=== PATIENT | male | born 1995 | race Caucasian/White ===

== ENCOUNTER 2021-04-29 11:37 | Emergency (ER) | payer OTHER ==
[~2021-04-29] VITALS: Ht 167.6 cm; Wt 65.8 kg
[~2021-04-29 11:37] MED LIST: BACTRIM DS TAB1 EACH PO; IBUPROFEN200 M1 PO; METHYLPHENIDATE20 M4 PO; NORCO 5-325 TA1 EACH PO
== END 2021-04-29 15:00 | disposition home or self-care (01) ==
LOC: ED 11:37
DX: S92.521A Displaced fracture of middle phalanx of right lesser toe(s), initial encounter for closed fracture (principal); Z91.030 Bee allergy status; Z91.09 Other allergy status, other than to drugs and biological substances; W23.0XXA Caught, crushed, jammed, or pinched between moving objects, initial encounter
CPT/HCPCS: 28515; 73660; 99283-25

== ENCOUNTER 2021-07-03 05:48 | Day surgery (SDC) | payer OTHER ==
[~2021-07-03] VITALS: Ht 167.6 cm; Wt 65.9 kg
--- NOTE | ~2021-07-03 | OR ---
[facility] [address] [place], [place] [address] Draft DATE OF OPERATION: 07/03/2021 SURGEON: Valarie Dougherty DPM PREOPERATIVE DIAGNOSIS: Inflammation and irritation of deep orthopedic device/screw x2, right calcaneal. POSTOPERATIVE DIAGNOSIS: Inflammation and irritation of deep orthopedic device/screw x2, right calcaneal. PROCEDURE: Removal of deep hardware x2. [employer] SUPERVISOR: Clifton Mack DPM NURSE BUSHLER: Clifton Yuan. ANESTHESIA: Local with MAC consisting of local of 6 mL of 1:1 mix of 2% lidocaine plain and 0.5% ropivacaine plain. HEMOSTASIS: Ankle tourniquet. ESTIMATED BLOOD LOSS: Less than 5 mL or minimal. MATERIALS UTILIZED: 4-0 nylon. PROCEDURE IN DETAIL: The patient was brought into the operating room and placed upon the operating room table in the prone position. Following IV sedation, the above local anesthesia was administered around the patient's posterior right calcaneal and ankle region. The foot was then scrubbed, prepped, and draped in the usual sterile technique. Esmarch was utilized to exsanguinate the patient's right foot and then left wrapped around the ankle to act as tourniquet. Attention was then directed to the posterior plantar aspect of the patient's right calcaneal area. It should be noted that there was a scar formation PATIENT NAME: LORNE AYALA OPERATIVE REPORT DATE OF : [birth year] REPORT #: [id number] PHYSICIAN: VALARIE DOUGHERTY DPM PCP: JOSI SANCHEZ MD REPORT IS CONFIDENTIAL AND NOT TO BE RELEASED WITHOUT AUTHORIZATION [facility] [address] [place], [place] [address] Draft present from previous surgery. Utilizing a 27-guage needle and a K-wire, the edge of screws were found through the integument. The cannula part of one on the screws was opened and the K-wire was allowed to usually pass into the cannula of the screw. Approximately, 12-mm incision was performed via the original skin incision through the scar tissue, incision was performed through the integument down into the subcutaneous tissue layer. It was then deepened through the fat layer down to bone. A Brainard elevator was utilized to lightly reflect the soft tissue from the edge of the screw head. The screw head was not visualized through the skin incision because the fat adipose layer however verification of the placement of the K-wire pin down the shaft of the screw was verified utilizing intraoperative fluoroscopy. A cannulated screw yard driver was then utilized to remove the screw, good bite occurred with engagement of the screw yard driver and the screw head. It should be noted that a lot of torque was needed in order to move the screw within the calcaneal and talar bony regions. Good bone density was observed as well as good bite of that screw. One screw was then removed. The 2nd screw was identified and probed for utilizing a K-wire. The cannula of the screw was identified, however, it was difficult for the K-wire to be inserted down through the shaft of the screw until a drill was inserted over the K-wire and used to free the bony calcification build up from over the end of the screw head. Once this was performed by hand, the screw yard driver was able to pass over the cannula into the 2nd screw, had engaged the head and again be removed. Upon removal of the 2nd screw, the area was flushed with copious amounts of sterile normal saline. Integument was then closed utilizing 4-0 nylon in the interrupted suture technique. Postoperative dressing was then applied consisting of silver gauze, fluff gauze, Kerlix, and Coban. The ankle tourniquet was removed and prompt hyperemic response was noted to all digits of the patient's right foot. The patient was then escorted to the recovery area with vital signs stable and again cap refill time less than 3 seconds to all digits. Following the period of postoperative monitoring, the patient was discharged to home with both written and oral instructions. KATE Alvarez/TONG /[id number] Copies: PATIENT NAME: LORNE AYALA OPERATIVE REPORT DATE OF : [birth year] REPORT #: [id number] PHYSICIAN: VALARIE DOUGHERTY DPM PCP: JOSI SANCHEZ MD REPORT IS CONFIDENTIAL AND NOT TO BE RELEASED WITHOUT AUTHORIZATION [facility] [address] [place] [address] [place] [address] Draft ~ PATIENT NAME: LORNE AYALA OPERATIVE REPORT DATE OF : [birth year] REPORT #: [id number] PHYSICIAN: VALARIE DOUGHERTY DPM PCP: JOSI SANCHEZ MD REPORT IS CONFIDENTIAL AND NOT TO BE RELEASED WITHOUT AUTHORIZATION
[~2021-07-03 05:48] MED LIST changes: +DOXYCYCLINE HY100 MG PO; +[UNRECOGNIZED DRUG - OTHER] PO
--- NOTE | 2021-07-03 09:43 | NUR ---
0930: PT RETURNS TO DAY SURGERY VIA STRETCHER. REQUESTED TO "STAY AND SLEEP LONGER" IN PACU. HOLDS APPROPRIATE CONVERSATION. VSS, RESP EVEN AND UNLABORED. STERILIZED HARDWARE PROVIDED BACK TO PT. COMFORTABLE WITHOUT NEEDS, BEAR HUGGER IN PLACE. DRESSING C/D/I AND EXTREMITY ELEVATED. ICE WATER AND SNACK OFFERED AND PT DECLINES. NO NEEDS VOICED, CALL LIGHT WITHIN REACH
--- NOTE | 2021-07-03 10:24 | NUR ---
07/03/21 1024 Maddy Srivastava 0830 PT ARRIVED IN PACU SLEEPY AND ROLLING AROUND IN BED. 0840 R FOOT ELEVATED ON PILLOW. ICE PLACED. 0856 C/O R FOOT PAIN. UNABLE TO RATE. FENTANYL 50MCG GIVEN IVP. 0900 SNORING. 0911 PT STATES "MY PAIN IS BETTER, BUT STILL THERE." FENTANYL 50MCG GIVEN IVP. 0925 3VIEW XRAY OF R FOOT DONE. 929 TO DS TO SLEEP UNTIL READY TO GO HOME.
--- NOTE | 2021-07-03 10:47 | NUR ---
1015: PT WITH CALL FOR THIS RN. REQUESTS DC. VSS, RESP EVEN AND UNLABORED. SL REMOVED WITH CATH TIP INTACT AND PRESSURE APPLIED TO SITE, WNL. DC INSTRUCTIONS PROVIDED AND DISCUSSED ORDERED. PT VOICES UNDERSTANDING AND DENIES QUESTIONS AND CONCERNS. DRESSES INDEPENDENTLY FOR DC 1025: WHEELED OFF OF UNIT IN BY CRISTEL LE FOR DC. SURGICAL SHOE IN PLACE. NO PHYSICAL S/S OF DISTRESS AT THIS TIME
== END 2021-07-03 10:25 | disposition home or self-care (01) ==
LOC: DS 05:48 → EDSTATUS 07:00 → DS 10:25
PROVIDERS: ATTEND Podiatrist Foot & Ankle Surgery
PROC: 0SPF0JZ Removal of Synthetic Substitute from Right Ankle Joint, Open Approach (ICD-10-PCS; principal; 2021-07-03 07:00)
DX: T84.7XXA Infection and inflammatory reaction due to other internal orthopedic prosthetic devices, implants and grafts, initial encounter (principal); T84.84XA Pain due to internal orthopedic prosthetic devices, implants and grafts, initial encounter; G89.18 Other acute postprocedural pain; Z99.2 Dependence on renal dialysis; Z88.5 Allergy status to narcotic agent; Z88.0 Allergy status to penicillin; Z91.013 Allergy to seafood
CPT/HCPCS: 73630; 73650; J0131; J0690; J1885; J2001; J2405; J2704; J2795; J3010; J7121

== ENCOUNTER 2022-06-16 10:16 | Emergency (ER) | payer OTHER ==
[~2022-06-16] VITALS: Ht 167.6 cm; Wt 72.3 kg
[2022-06-16 11:13] VITALS: BP 138/77
== END 2022-06-16 11:13 | disposition home or self-care (01) ==
LOC: ED 10:16
DX: S61.210A Laceration without foreign body of right index finger without damage to nail, initial encounter (principal); W25.XXXA Contact with sharp glass, initial encounter; Z91.048 Other nonmedicinal substance allergy status
CPT/HCPCS: 90715